=== PATIENT | female | born 1950 | race Caucasian/White ===

== ENCOUNTER 2023-04-12 09:51 | Emergency (ER) | payer MEDICARE, SELFPAY ==
[2023-04-12 09:53] VITALS: BP 153/77; PULSE 77; RESP 16; TEMP 36.4; O2SAT 98
[2023-04-12 11:05] LABS: Strep Group A RT-PCR NOT DETECTED (Negative)
--- NOTE | 2023-04-12 11:23 | ED.GENADULT ---
HPI - General Adult General Chief complaint: Upper Respiratory Infection Stated complaint: throat feels closing, chest is cutting Time Seen by Provider: 04/12/23 10:15 History of Present Illness HPI narrative: 72-year-old female presented the ED for evaluation of sore throat. Patient states that the symptoms started yesterday. Patient does report some increased difficulty swallowing and does have some epigastric pain. Patient is not on an inhaled steroid, is not diabetic, takes no immunosuppressive medications and has no prior history of thrush Related Data Allergies Allergy/AdvReac Type Severity Reaction Status Date / Time azithromycin Allergy Severe RASH Verified 04/12/23 10:00 Penicillins Allergy Intermediate Rash Verified 04/12/23 10:00 Review of Systems Review of Systems: All systems reviewed & are unremarkable except as noted in HPI and below Exam Narrative: PPEARANCE: Well appearing, no pain, no distress, well-nourished. HEAD: normocephalic, atraumatic. EYES: PERRLA/EOMI, conjunctivae clear. NOSE: Normal no drainage EARS:TMS clear with good light reflex. THROAT: White plaques on soft and hard palate and tongue consistent with thrush, mild erythema of the posterior pharynx NECK: Supple. No adenopathy, no masses. RESPIRATORY: Airway patent, respirations nonlabored. Clear to auscultation bilaterally, no rales, rhonchi, wheezing. CARDIOVASCULAR: Regular rate and rhythm without murmurs rubs or gallops. ABDOMINAL: Soft, nontender, nondistended, normal bowel sounds MUSCULOSKELETAL: Moves all extremities. Strength/ROM intact, No edema, No calf tenderness. NEURO: Alert. Cranial nerves II through XII intact. Good gait. Good coordination SKIN: Warm, dry. Normal Color PSYCHIATRIC: Normal affect/mood. Course Course Emergency Course: 72-year-old female presented ED for evaluation of sore throat. Exam was consistent with thrush and patient strep was negative. Patient will be treated with oral nystatin. Patient family were updated on the results of the work-up and patient was encouraged of close follow-up with her primary care physician. Vital Signs Vital signs: Vital Signs Temperature 97.6 F 04/12/23 09:53 Pulse Rate 77 04/12/23 09:53 Respiratory Rate 16 04/12/23 09:53 Blood Pressure 153/77 H 04/12/23 09:53 Pulse Oximetry 98 04/12/23 09:53 Oxygen Delivery Room Air 04/12/23 09:53 Temperature 97.6 F 04/12/23 09:53 Pulse Rate 77 04/12/23 09:53 Respiratory Rate 16 04/12/23 09:53 Blood Pressure 153/77 H 04/12/23 09:53 Pulse Oximetry 98 04/12/23 09:53 Oxygen Delivery Room Air 04/12/23 09:53 Medical Decision Making Vital Signs Vital Signs: Vital Signs Temperature 97.6 F 04/12/23 09:53 Pulse Rate 77 04/12/23 09:53 Respiratory Rate 16 04/12/23 09:53 Blood Pressure 153/77 H 04/12/23 09:53 Pulse Oximetry 98 04/12/23 09:53 Oxygen Delivery Room Air 04/12/23 09:53 Temperature 97.6 F 04/12/23 09:53 Pulse Rate 77 04/12/23 09:53 Respiratory Rate 16 04/12/23 09:53 Blood Pressure 153/77 H 04/12/23 09:53 Pulse Oximetry 98 04/12/23 09:53 Oxygen Delivery Room Air 04/12/23 09:53 Lab Data Labs: Lab Results 04/12/23 Range/Units 10:28 Group A Strep (PCR) Not detected (Negative) Discharge Plan Discharge Clinical Impression: Thrush of mouth and esophagus Patient Disposition: Home, Self-Care Condition: Stable Instructions: Antibiotic Form, Oral Candidiasis (ED) Additional Instructions: Oral nystatin as directed. Have close follow-up with your primary care physician for reevaluation. If you have any worsening symptoms then please call or return to the emergency department. Prescriptions: New nystatin 100,000 unit/mL suspension 100,000 unit PO QID 7 Days Qty: 28 0RF Rx Instructions: swish and swallow Follow-up/Referrals: Reema,DONAVAN De Los Santos [Primary Care Provider] -
[2023-04-12] MEDS: NYSTATIN 100,000 UNITS/ML SUSP 5 ML ORAL.SUSP PO (11:33)
== END 2023-04-12 11:39 | disposition home or self-care (01) ==
PROVIDERS: Emergency Provider Emergency Medicine; PCP Nurse Practitioner Family
DX: B37.81 Candidal esophagitis (principal); B37.0 Candidal stomatitis
CPT/HCPCS: 87651; 99283; A9270

== ENCOUNTER 2025-09-10 09:42 | Emergency (ER) | payer MEDICARE, SELFPAY ==
--- OUTSIDE RECORDS SUMMARY | 2025-09-10 09:44 | XMS_ITS | Clinical Summary ---
Author Organization [facility] Address [address], [address] [address] Phone Care Team Providers Care Loan And Credit Manager Name Role Phone Reema, Magali Carlin APRN, CHITRA Primary Care Provider Allergies Active Allergy Reactions Criticality Noted Date Comments Azithromycin Rash 02/14/2017 Penicillins Rash,Swelling 02/14/2017 Medications hydroCHLOROthiaz ruben 25 MG Tablet Take 25 mg by mouth daily. Active metoprolol tartrate (LOPRESSOR) 25 MG Tablet Take 25 mg by mouth 2 times daily. Active venlafaxine (EFFEXOR-XR) 150 MG CAPSULE SR 24 HR Take 150 mg by mouth daily. Active aspirin 81 MG Chewable Tablet Take 81 mg by mouth daily. Active simvastatin (ZOCOR) 40 MG Tablet Take 40 mg by mouth every evening. Active omeprazole (PRILOSEC) 20 MG CAPSULE DELAYED RELEASE Take 20 mg by mouth 2 times daily. Active QUEtiapine (SEROquel) 100 MG Tablet Take by mouth nightly. Active Active Problems Problem Noted Date Diagnosed Date Complex tear of medial menis cus of left knee as current injury 05/09/2017 Family History Medical History Relation Name Comments Heart Attack Father Relation Name Status Comments Father Mother Social History Tobacco Use Types Packs/Day Years Used Date Smoking Tobacco: Never Smokeless Tobacco: Never Alcohol Use Standard Drinks/Week Comments No 0 (1 standard drink = 0.6 oz pur e alcohol) Comments No Sex and Gender Information Value Date Recorded Sex Assigned at Not on file Legal Sex Female 10:52 PM CDT Gender Identity Not on file Sexual Orientation Not on file Last Filed Vital Signs Vital Sign Reading Time Taken Comments Blood Pressure 169/61 04/13/2023 12:13 PM CDT Pulse 72 04/13/2023 12:13 PM CDT Temperature 36.8 C (98.2 F) 04/13/2023 12:13 PM CDT Respiratory Rate 16 04/13/2023 12:13 PM CDT Oxygen Saturation 97% 04/13/2023 12:13 PM CDT Inhaled Oxygen Concentration - - Weight 75.8 kg (167 lb) 05/14/2024 10:53 AM CDT Height 167.6 cm (5' 6) 05/14/2024 10:53 AM CDT Body Mass Index 26.95 05/14/2024 10:53 AM CDT Plan of Treatment Health Maintenance Due Date Last Done Comments DEXA Bone Density 1950 Hepatitis C Virus (HCV) Screening 1950 TdaP Immunization 1950 Cologuard 1995 Colonoscopy 1995 Colorectal Cancer Screening 1995 Immunochemical Fecal Occult Blood 1995 Zoster Immunization (1 of 2) 2000 Medicare Initial AWV [id number] 02/20/2010 Pneumococcal Immunization (50+ years) (2 of 2 - PCV20 or PCV21) 03/24/2019 03/24/2018 Influenza Immunization (#1) 2025 09/0 02/2024, 08/06/2023, 07/06/2022, Additional history exists SARS-COV-2 Immunization (2024- season) 2025 11/26/2021, 05/22/2021, 05/02/2021 Respiratory Syncytial Virus (RSV) Immunization (Adult) (1 - 1-dose 75+ series) 2025 Pneumococcal Immunization Combined Discontinued 03/24/2018 Mammogram Discontinued 12/02/2023, 12/19/2020 Hepatitis B Immunization Aged Out No longer eligible based on patient's age to complete this topic Human Papillomavirus (HPV) Immunization (No Doses Required) Completed Meningococcal Immunization (ACWY) Aged Out No longer eligible based on patient's age to complete this topic Rotavirus Immunization Aged Out No lo nger eligible based on patient's age to complete this topic Procedures Procedure Name Priority Date/Time Associated Diagnosis Comments OTTO SCREENING BILATERAL DIGITAL W CAD W MARIA ELENA Routine 12/02/2023 2:47 PM CDT Visit for screening mammogram from Last 3 Months or Most Recently Relevant to Health Maintenance Results * OTTO SCREENING BILATERAL DIGITAL W CAD W MARIA ELENA (12/02/2023 2:47 PM CDT) Anatomical Region Laterality Modality breast Bilateral Mammography 12/02/2023 2:47 PM CDT Narrative 12/03/2023 8:21 AM CDT - OTTO SCREENING BILATERAL DIGITAL W CAD W MARIA ELENA BILATERAL DIGITAL SCREENING MAMMOGRAM 3D/2D WITH CAD WITH MEDIOLATERAL OBLIQUE CRANIOCAUDAL: 12/02/2023 The study was acquired using digital technology and interpreted from soft copy. Current study was also evaluated with EyesquadD version 7.2. 2D digital mammographic views, as well as 3D digital tomosynthesis were performed in the CC and MLO projections. CLINICAL: Routine screening. Patient has no complaints. Possible 30 pound weight loss since last mammogram. No personal history of cancer. No family history of breast cancer. COMPARISONS: Comparison is made to exams dated: 12/19/2020, 08/23/2011 [facility], and 07/22/2009 [facility]. BREAST TISSUE:There are scattered fibroglandular densities in both breasts. FINDINGS: No significant masses, calcifications, or other findings are seen in either breast. There has been no significant interval change. IMPRESSION: BI-RAD 1 NEGATIVE There is no mammographic evidence of malignancy. A 1 year screening mammogram is recommended. A letter will be sent to the patient with these results. The patient will be entered into a reminder system with a target due date of 1 year for her next screening exam. Electronically signed by: Chichi looney/rosa:12/02/2023 16:37:54 Printed Circuit Board Designer(s): RT Alejandra(R)(M), [facility] letter sent: Normal Exam Reading location: [facility] BI-RADS: 1 Negative Procedure Note Chichi Pandya MD - 12/03/2023 - OTTO SCREENING BILATERAL DIGITAL W CAD W MARIA ELENA BILATERAL DIGITAL SCREENING MAMMOGRAM 3D/2D WITH CAD WITH MEDIOLATERAL OBLIQUE CRANIOCAUDAL: 12/02/2023 The study was acquired using digital technology and interpreted from soft copy. Current study was also evaluated with ICAD version 7.2. 2D digital mammographic views, as well as 3D digital tomosynthesis were performed in the CC and MLO projections. CLINICAL: Routine screening. Patient has no complaints. Possible 30 pound weight loss since last mammogram. No personal history of cancer. No family history of breast cancer. COMPARISONS: Comparison is made to exams dated: 12/19/2020, 08/23/2011 [facility], and 07/22/2009 [facility]. BREAST TISSUE:There are scattered fibroglandular densities in both breasts. FINDINGS: No significant masses, calcifications, or other findings are seen in either breast. There has been no significant interval change. IMPRESSION: BI-RAD 1 NEGATIVE There is no mammographic evidence of malignancy. A 1 year screening mammogram is recommended. A letter will be sent to the patient with these results. The patient will be entered into a reminder system with a target due date of 1 year for her next screening exam. Electronically signed by: Chichi looney/rosa:12/02/2023 16:37:54 Printed Circuit Board Designer(s): RT Alejandra(R)(M), [facility] letter sent: Normal Exam Reading location: [facility] BI-RADS: 1 Negative Magali Benavidez DROP WIRE ALIGNER, STATISTICAL ENGINEER IMG MAMMO ORDERABLES F inal Result from Last 3 Months or Most Recently Relevant to Health Maintenance Insurance MEDICARE C [facility] [place] [id number] Care Teams Loan And Credit Manager Relationship Specialty Start Date End Date Magali Benavidez APRN, STATISTICAL ENGINEER [address] [place] [address] PCP - General Advanced Practice Nurse 07/17/20
--- OUTSIDE RECORDS SUMMARY | 2025-09-10 09:44 | XMS_ITS | Data Portability ---
Author Organization [facility] DIANNAOdilon Address [address] [place] [address] Care Team Providers Care Driver/Guide Name Role Phone MAGALI TAVERA Primary Care Provider [phone] Assessment Encounter Date Assessment Date Assessment LastModified by Organization Details LastModified Time 02/04/2024 02/04/2024 Ms. Swift presented in office today for follow up appointment. Patient reports episodes of feeling off balance. Patient also reports bilateral decreased hearing Not available 02/12/2024 08:52:45 03/08/2024 03/08/2024 Ms. Swift presented in office today for follow up appointment. Not available 03/08/2024 16:28:48 09/07/2024 09/07/2024 Ms. Swift is here for a follow-up, reporting no new symptoms or concerns. No changes in health since the last visit. Not available 09/23/2024 00:18:24 01/11/2025 01/11/2025 Ms. Swift is here for a follow-up, reporting constipation x 2 weeks. Patient also requesting refill on Epi pen. Not available 01/14/2025 09:58:12 03/15/2025 03/15/2025 Ms. Swift present for follow up appointment and Medicare wellness exam. Not available 03/28/2025 09:05:22 Plan of Treatment Reminders Order Date Submit Date Provider Last Modified By Organization Details Last Modified Time Details Appointments ANY 15 2025 02:45P M MAGALI TAVERA NP Not available Not available Not available Lab noninvas calos colorect al cancer DNA + occult blood screenin g, QL, stool 2023 024 [facility], [address], [address], [place], [address], 04/07/2024 15:46:50 CMP, serum or plasma 2023 024 [facility], [address] [place] [address] 2, [place], [address], 02/05/2024 10:37:07 CBC w/ auto diff 2023 024 [facility], [address] [facility], [facility] 2, [place], [address], 02/05/2024 10:37:09 Referral audiolog ist referral 2023 024 [email or web address], [address] [place] [address] [address], [place], [address], 05/25/2024 12:23:08 Procedures None recorded . Surgeries None recorded . Imaging DEXA 2023 024 [email or web address], [address] [place], [address], 02/22/2025 14:33:57 Medication Orders EpiPen 2-Landon 0.3 mg/0.3 mL injectio n, auto-inj sandie 2024 025 [facility] [address] [place], [address], 01/11/2025 14:43:16 omeprazo le 20 mg capsule, delayed release 2023 024 [facility] [address] [place], [address], 09/07/2024 16:08:05 meclizin e 12.5 mg tablet 2023 024 [facility] [address] [place], [address], 02/04/2024 15:29:14 Patient TargetsNo targets recorded. Patient Instructions Encounter Date Encounter Id Patient Instructions Last Modified By Organization Details Last Modified Time 02/04/2024 [id number] vertigo: care instructions Not available 02/04/2024 15:30:32 A healthy lifestyle: care instructions Not available 02/12/2024 08:57:07 - Always present to ER or Urgent Care with any progression of/alarming symptoms, significant changes in symptoms or any concerning or urgent matters Not available 02/12/2024 08:50:38 03/08/2024 [id number] advance care planning: care instructions Not available 03/08/2024 15:20:35 preventing falls : care instructions Not available 03/08/2024 15:20:35 Medicare [facility] Prevent[facility] Check[facility] Not available 03/08/2024 15:20:35 eating healthy foods: care instructions Not available 03/08/2024 15:20:35 AD8 Dementia Screening Interview Not available 03/08/2024 15:20:35 - Always present to ER or Urgent Care with any progression of/alarming symptoms, significant changes in symptoms or any concerning or urgent matters Not available 03/08/2024 15:18:34 09/07/2024 [id number] - Always present to ER or Urgent Care with any progression of/alarming symptoms, significant changes in symptoms or any concerning or urgent matters Not available 09/23/2024 00:22:27 01/11/2025 [id number] A healthy lifestyle: care instructions Not available 01/11/2025 14:43:04 - Always present to ER or Urgent Care with any progression of/alarming symptoms, significant changes in symptoms or any concerning or urgent matters Not available 01/11/2025 14:44:11 03/15/2025 [id number] advance care planning: care instructions Not available 03/15/2025 14:55:40 preventing falls : care instructions Not available 03/15/2025 14:55:40 Quitting Tobacco : Care Instructions Not available 03/15/2025 14:55:40 Medicare [facility] Preventive Checklist Not available 03/15/2025 14:55:40 eating healthy foods: care instructions Not available 03/15/2025 14:55:40 AD8 Dementia Screening Interview Not available 03/15/2025 14:55:40 - Always present to ER or Urgent Care with any progression of/alarming symptoms, significant changes in symptoms or any concerning or urgent matters Not available 03/15/2025 14:39:03 Reason for Referral [employer] Referral for Hea ring loss Referring Physician: Magali Tavera, Family Medicine, Encounter Date: 02/04/2024 Results Created Date Observation Date Name Description Value Unit Range Abnormal Flag Note LastModifiedBy Organization Detail LastModifiedTime 03/08/2003/08/2025 COLOG UARD cologuard result Cancel led - Order d not applic able Not Available [facility] [address], [place], [address], 03/08/2025 04:27:15 02/04/20 24 02/05/2024 COMP. METAB OLIC PANEL (14) glucose 117 mg/dL 70-99 above high normal Not Available [facility] ([facility]) [address] [place], [address], 02/05/2024 10:37:07 02/04/20 24 02/05/2024 COMP. METAB OLIC PANEL (14) BUN 17 mg/dL 8-27 Not Available [facility] ([facility]) [address] [place], [address], 02/05/2024 10:37:07 02/04/20 24 02/05/2024 COMP. METAB OLIC PANEL (14) creatinine 0.90 mg/dL 0.57-1 .00 Not Available [facility] ([facility]) [address] [place], [address], 02/05/2024 10:37:07 02/04/20 24 02/05/2024 COMP. METAB OLIC PANEL (14) eGFR 68 mL/mi n/1.7 3 >59 Not Available [facility] ([facility]) [address] [facility], [place], [address], 02/05/2024 10:37:07 02/04/20 24 02/05/2024 COMP. METAB OLIC PANEL (14) BUN/creatini ne ratio 19 12-28 Not Available [facility] ([facility]) [address] [facility], [place], [address], 02/05/2024 10:37:07 02/04/20 24 02/05/2024 COMP. METAB OLIC PANEL (14) sodium 138 mmol/ L 134-14 4 Not Available [facility] ([facility]) [address] [facility], [place], [address], 02/05/2024 10:37:07 02/04/20 24 02/05/2024 COMP. METAB OLIC PANEL (14) potassium 3.7 mmol/ L 3.5-5. 2 Not Available [facility] ([facility]) [address] [facility], [place], [address], 02/05/2024 10:37:07 02/04/20 24 02/05/2024 COMP. METAB OLIC PANEL (14) chloride 98 mmol/ L 96-106 Not Available [facility] ([facility]) [address] [facility], [place], [address], 02/05/2024 10:37:07 02/04/20 24 02/05/2024 COMP. METAB OLIC PANEL (14) carbon dioxide, total 25 mmol/ L 20-29 Not Available [facility] ([facility]) [address] [facility], [place], [address], 02/05/2024 10:37:07 02/04/20 24 02/05/2024 COMP. METAB OLIC PANEL (14) calcium 9.9 mg/dL 8.7-10 .3 Not Available [facility] ([facility]) [address], [place], [address], 02/05/2024 10:37:07 02/04/20 24 02/05/2024 COMP. METAB OLIC PANEL (14) protein, total 6.8 g/dL 6.0-8. 5 Not Available [facility] ([facility]) [address], [place], [address], 02/05/2024 10:37:07 02/04/20 24 02/05/2024 COMP. METAB OLIC PANEL (14) albumin 4.1 g/dL 3.8-4. 8 Not Available [facility] ([facility]) [address], [place], [address], 02/05/2024 10:37:07 02/04/20 24 02/05/2024 COMP. METAB OLIC PANEL (14) globulin, total 2.7 g/dL 1.5-4. 5 Not Available [facility] ([facility]) [address], [place], [address], 02/05/2024 10:37:07 02/04/20 24 02/05/2024 COMP. METAB OLIC PANEL (14) A/G ratio 1.5 1.2-2. 2 Not Available [facility] ([facility]) [address] [place], [address], 02/05/2024 10:37:07 02/04/20 24 02/05/2024 COMP. METAB OLIC PANEL (14) bilirubin, total 0.3 mg/dL 0.0-1. 2 Not Available [facility] ([facility]) [address] [place], [address], 02/05/2024 10:37:07 02/04/20 24 02/05/2024 COMP. METAB OLIC PANEL (14) alkaline phosphatase 103 IU/L 44-121 Not Available [facility]) [address], [place], [address], 02/05/2024 10:37:07 02/04/20 24 02/05/2024 COMP. METAB OLIC PANEL (14) AST (SGOT) 38 IU/L 0-40 Not Available [facility] ([facility]) [address] [facility] [place], [address], 02/05/2024 10:37:07 02/04/20 24 02/05/2024 COMP. METAB OLIC PANEL (14) ALT (SGPT) 28 IU/L 0-32 Not Available [facility] ([facility]) [address] [facility], [place], [address], 02/05/2024 10:37:07 02/04/20 24 02/05/2024 CBC WITH DIFFE RENTI AL/PL ATELE T WBC 8.8 x10e3 /uL 3.4-10 .8 Not Available [facility] ([facility]) [address] [facility], [place], [address], 02/05/2024 10:37:08 02/04/20 24 02/05/2024 CBC WITH DIFFE RENTI AL/PL ATELE T RBC 4.25 x10e6 /uL 3.77-5 .28 Not Available [facility] ([facility]) [address] [facility] [place], [address], 02/05/2024 10:37:08 02/04/20 24 02/05/2024 CBC WITH DIFFE RENTI AL/PL ATELE T hemoglobin 11.6 g/dL 11.1-1 5.9 Not Available [facility] ([facility]) [address] [facility] [place], [address], 02/05/2024 10:37:08 02/04/20 24 02/05/2024 CBC WITH DIFFE RENTI AL/PL ATELE T hematocrit 34.8 % 34.0-4 6.6 Not Available [facility] ([facility]) [address] [facility] [place], [address], 02/05/2024 10:37:08 02/04/20 24 02/05/2024 CBC WITH DIFFE RENTI AL/PL ATELE T MCV 82 fL 79-97 Not Available [facility] ([facility]) [address] [facility], [place], [address], 02/05/2024 10:37:08 02/04/20 24 02/05/2024 CBC WITH DIFFE RENTI AL/PL ATELE T MCH 27.3 pg 26.6-3 3.0 Not Available [facility] ([facility]) [address] [facility], [place], [address], 02/05/2024 10:37:08 02/04/20 24 02/05/2024 CBC WITH DIFFE RENTI AL/PL ATELE T MCHC 33.3 g/dL 31.5-3 5.7 Not Available [facility] ([facility]) [address] [facility], [place], [address], 02/05/2024 10:37:08 02/04/20 24 02/05/2024 CBC WITH DIFFE RENTI AL/PL ATELE T RDW 13.0 % 11.7-1 5.4 Not Available [facility] ([facility]) [address] [facility], [place], [address], 02/05/2024 10:37:08 02/04/20 24 02/05/2024 CBC WITH DIFFE RENTI AL/PL ATELE T platelets 269 x10e3 /uL 150-45 0 Not Available [facility] ([facility]) [address] [facility], [place], [address], 02/05/2024 10:37:08 02/04/20 24 02/05/2024 CBC WITH DIFFE RENTI AL/PL ATELE T neutrophils 61 % notest ab. Not Available [facility] ([facility]) [address] [facility], [place], [address], 02/05/2024 10:37:08 02/04/20 24 02/05/2024 CBC WITH DIFFE RENTI AL/PL ATELE T lymphs 26 % notest ab. Not Available [facility] ([facility]) [address] [facility], [place], [address], 02/05/2024 10:37:08 02/04/20 24 02/05/2024 CBC WITH DIFFE RENTI AL/PL ATELE T monocytes 9 % notest ab. Not Available [facility] ([facility]) [address] [facility], [place], [address], 02/05/2024 10:37:08 02/04/20 24 02/05/2024 CBC WITH DIFFE RENTI AL/PL ATELE T eos 2 % notest ab. Not Available [facility] ([facility]) [address] [facility], [place], [address], 02/05/2024 10:37:08 02/04/20 24 02/05/2024 CBC WITH DIFFE RENTI AL/PL ATELE T basos 1 % notest ab. Not Available [facility] ([facility]) [address] [facility], [place], [address], 02/05/2024 10:37:08 02/04/20 24 02/05/2024 CBC WITH DIFFE RENTI AL/PL ATELE T neutrophils (absolute) 5.3 x10e3 /uL 1.4-7. 0 Not Available [facility] ([facility]) [address] [facility], [place], [address], 02/05/2024 10:37:08 02/04/20 24 02/05/2024 CBC WITH DIFFE RENTI AL/PL ATELE T lymphs (absolute) 2.3 x10e3 /uL 0.7-3. 1 Not Available [facility] ([facility]) [address] [facility], [place], [address], 02/05/2024 10:37:08 02/04/20 24 02/05/2024 CBC WITH DIFFE RENTI AL/PL ATELE T monocytes(ab solute) 0.8 x10e3 /uL 0.1-0. 9 Not Available [facility] ([facility]) [address] [facility], [place], [address], 02/05/2024 10:37:08 02/04/20 24 02/05/2024 CBC WITH DIFFE RENTI AL/PL ATELE T eos (absolute) 0.2 x10e3 /uL 0.0-0. 4 Not Available [facility] ([facility]) [address] [facility], [place], [address], 02/05/2024 10:37:08 02/04/20 24 02/05/2024 CBC WITH DIFFE RENTI AL/PL ATELE T baso (absolute) 0.1 x10e3 /uL 0.0-0. 2 Not Available [facility] ([facility]) [address] [facility], [place], [address], 02/05/2024 10:37:08 02/04/20 24 02/05/2024 CBC WITH DIFFE RENTI AL/PL ATELE T immature granulocytes 1 % notest ab. Not Available [facility] ([facility]) [address] [facility], [place], [address], 02/05/2024 10:37:08 02/04/20 24 02/05/2024 CBC WITH DIFFE RENTI AL/PL ATELE T immature grans (abs) 0.0 x10e3 /uL 0.0-0. 1 Not Available [facility] ([facility]) [address] [facility], [place], [address], 02/05/2024 10:37:08 Result Notes None recorded. Problems Name Problem SNOMED Code Status Onset Date Resolution Date Notes Provider Name and Address Organization Details Recorded Time Chest discomfor t 670607685 Active Not Available [facility] 4 06:42:53 Obesity 752796301 Active Not Available [facility] 4 06:42:54 Hypertens calos disorder 41897975 Active Not Available [facility] 4 06:42:53 Chronic obstructi ve pulmonary disease 21576833 Active Not Available [facility] 4 06:42:53 Gastroeso phageal reflux disease 194253923 Active Not Available [facility] 4 06:42:53 Mixed anxiety and depressiv e disorder 768094830 Active Dr Schwartz Not Available [facility] 4 06:42:53 Hyperlipi demia 08538371 Active Not Available [facility] 4 06:42:54 Acute sinusitis 81243534 Completed 08/27/2018 Natalia Haley PA-C Attn: Accounting ,[address] [place], [place], [address] [place] [address] , [place] [facility] 8 17:35:15 Acute exacerbat ion of chronic obstructi ve pulmonary disease 653851172 Completed 08/27/2018 Natalia Haley PA-C Attn: Accounting ,[address] [place], [place], [address] [place] [address] , [place] [facility] 8 17:35:23 Diastolic dysfuncti on 6548174 Active Not Available [facility] 4 06:42:53 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 Not Available [facility] 4 06:42:53 Bacterial conjuncti vitis 824088840 Completed 08/27/2018 Natalia Haley PA-C Attn: Accounting ,[address] [place], [place], [address] [place] [address] , [place] [facility] 8 17:35:10 Eruption 400085713 Active Not Available [facility] 4 06:42:53 Allergy to bee venom 320981590 Active Not Available [facility] 4 06:42:54 Osteoarth ritis 635128315 Active 2016 Not Available [facility] 4 06:42:53 Persisten t insomnia 391914557 Active 2017 Not Available [facility] 4 06:42:53 Foot pain 48675907 Active 2018 Not Available [facility] 4 06:42:54 Vitamin D deficienc y 31505386 Active 2018 Not Available [facility] 4 06:42:53 Body mass index 30+ - obesity 392762732 Active 2021 Not Available [facility] 4 06:42:53 Pain in finger of left hand 70192347491 9105 Active 2022 Not Available [facility] 4 06:42:53 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 96989485657 22471 Active 2022 Not Available [facility] 4 06:42:53 Candidias is of mouth 54587564 Active 2022 Not Available [facility] 4 06:42:54 Hypokalem ia 25819686 Active 2022 Not Available [facility] 4 06:42:54 Vertigo 230233465 Active 2023 MAGALI TAVERA NP Attn: Accounting ,[address] [place], [address] , [facility] 4 08:57:03 Overweigh t 661760373 Active 2023 MAGALI TAVERA NP Attn: Accounting ,[address] [place], [address] , [facility] - [facility] 4 08:57:06 [place]os[place] py declined 82944572241 9100 Active 2024 MAGALI TAVERA NP Attn: Accounting ,[address] [place], [address] , [place] [facility] 5 00:22:42 Notes:02/14/17 [facility] HTN, left knee pain and UTI Some problems listed in Documents: #[id number], #[id number], #[id number], #[id number] could not be added to this patient's chart. Please review these documents and add these problems to the patient's chart manually as needed. Problem Notes None recorded. Procedures Surgical History Date Name Laterality Status Provider Name and Address Organization Details Recorded Time 05/10/20 17 Knee Surgery completed Jacquelin Vegas LPN [place] - [facility] 05/23/2017 14:05:01 Back Surgery completed [facility] 08/25/2014 15:59:51 Cholecystectomy completed [facility] 08/25/2014 15:59:51 Tonsillectomy completed [facility] 08/25/2014 15:59:51 Tubal Ligation completed [facility] 08/25/2014 15:59:51 Imaging Results None recorded. Procedure Notes None recorded. Medical Equipment None Reported. Allergies Allergen ID Allergen Name Allergen Category Reaction Reaction Severity Criticality Documentation Date Start Date Code Code System Note Provider Name and Address Organization Details Recorded Time 333091 Pneumococ gautam vaccine Not available rash severe Not available 04/02/2018 98467 7 RxNorm [place] - [place] 8 11:46:02 5630 Product containin g penicilli n (product) medicatio n rash swelling Not available Not available Not available 08/25/20142016 79364 8001 SNOMED MAGALI TAVERA NP Attn: Accountin g,[address] [place], [address], [facility] - [facility] 5 14:27:06 5631 azithromy sammie medicatio n rash Not available Not available 08/25/20142016 47760 RxNorm MAGALI TAVERA HVAC DESIGN ENGINEER Attn: Accountin g,[address] [place], [address], [facility] - [facility] 5 14:27:02 02678 Cipro medicatio n hives moderate Not available 02/21/201732596 3 RxNorm Sissy gabriel, [place] - [facility] 7 14:51:56 Medications Name Sig Start Date Stop Date Status Note LastModified by Organization Details LastModified Time quetiapin e fumarate 100 mg tabs 03/29 completed Not Available Not Available Not Available venlafaxi ne hcl er 150 mg cp24 03/29 completed Not Available Not Available Not Available Prescript ion - Prior Authoriza tion Request 07/10 completed Not Available Not Available Not Available omeprazol e 20 mg cpdr 03/29 completed Not Available Not Available Not Available metoprolo l tartrate 25 mg tabs 03/29 completed Not Available Not Available Not Available gabapenti n 300 mg caps 03/29 completed Not Available Not Available Not Available terbinafi ne HCl 1 % topical cream APPLY TO THE AFFECTED AND SURROUND ING AREAS OF SKIN BY TOPICAL ROUTE ONCE DAILY 04/01 completed Not Available Not Available Not Available Lopressor 50 mg tablet TAKE 0.5 TABLET (25 MG) BY ORAL ROUTE 2 TIMES PER DAY WITH MEALS 2014 active Started by cardiolo gist Not Available Not Available Not Available atorvasta tin 80 mg tablet TAKE 1 TABLET BY MOUTH ONCE DAILY IN THE EVENING 2024 active Not Available Not Available Not Avai lable nystatin 100,000 unit/mL oral suspensio n TAKE 5 ML BY MOUTH 4 TIMES DAILY FOR 14 DAYS 08/06 completed Not Available Not Available Not Available prednison e 10 mg tablet 03/24 completed Not Available Not Available Not Available ibuprofen 800 mg tablet active Not Available Not Available Not Available hydrocodo ne 5 mg-acetam inophen 325 mg tablet TAKE 1 TABLET BY MOUTH EVERY 6 HOURS active Not Available Not Available No t Available Diphenhyd ramine HCl (Sleep) 25 mg tablet Take 2 tablets every day by oral route at bedtime. 10/15 completed Not Available Not Available Not Available prednison e 20 mg tablet TAKE 1 TABLET BY MOUTH ONCE DAILY FOR 5 DAYS 02/04 completed Not Available Not Available Not Available quetiapin e 200 mg tablet active Not Available Not Available Not Available clobetaso l 0.05 % topical cream APPLY A THIN LAYER TO RASH AREA(S) TWICE DAILY FOR UP TO 4 WEEKS, THEN TAKE A TWO WEEK BREAK. ONCE RESOLVED , THEN USE TWICE WEEKLY FOR 6 MONTHS active Not Available Not Available No t Available venlafaxi ne ER 150 mg capsule,e xtended release 24 hr Take 1 capsule by mouth once daily in the morning 2024 active Not Available Not Available Not Avai lable meclizine 12.5 mg tablet TAKE 2 TABLETS BY MOUTH THREE TIMES DAILY FOR 10 DAYS active Not Available Not Available No t Available potassium chloride ER 10 mEq tablet,ex tended release TAKE 1 TABLET BY MOUTH ONCE DAILY FOR 30 DAYS 02/03 completed Not Available Not Available Not Available Tamiflu 75 mg capsule Take 1 capsule twice a day by oral route for 10 days. 03/24 completed Not Available Not Available Not Available aspirin 81 mg tablet,de layed release Take 1 tablet every day by oral route. 02/04 completed Not Available Not Available Not Available tramadol 50 mg tablet Take 1 tablet 3 times a day by oral route. 04/01 completed Not Available Not Available Not Available quetiapin e 100 mg tablet TAKE 1 TABLET BY MOUTH ONCE DAILY AT BEDTIME 2024 active Not Available Not Available Not Avai lable simvastat in 40 mg tablet TAKE 1 TABLET BY MOUTH ONCE DAILY AT BEDTIME FOR 90 DAYS active Not Available Not Available No t Available pravastat in 80 mg tablet TAKE 1 TABLET BY MOUTH IN THE EVENING 04/14 completed Changed to lipitor Not Available Not Available Not Available ciproflox acin 0.3 % eye drops INSTILL 1 DROP INTO THE AFFECTED EYE(S) EVERY 4 HOURS FOR 7 DAYS 07/10 completed Not Available Not Available Not Available benzonata te 100 mg capsule TAKE 1 CAPSULE BY MOUTH EVERY 8 HOURS NEEDED 02/04 completed Not Available Not Available Not Available hydrocort isone 1 % topical cream Every 4 hrs for 30 days 10/15 completed Not Available Not Available Not Available hydrocodo ne 7.5 mg-acetam inophen 325 mg tablet 03/24 completed Not Available Not Available Not Available polymyxin B sulfate 10,000 unit-trim ethoprim 1 mg/mL eye drops INSTILL 1 DROP INTO AFFECTED EYE BY OPHTHALM IC ROUTE EVERY 6 HOURS X 7 DAYS 03/24 completed Not Available Not Available Not Available gabapenti n 300 mg capsule TAKE 1 CAPSULE BY MOUTH THREE TIMES DAILY 2024 active Not Available Not Available Not Avai lable omeprazol e 20 mg capsule,d elayed release Take 1 capsule by mouth twice daily 2024 active Not Available Not Available Not Avai lable hydrochlo rothiazid e 25 mg tablet Take 1 tablet by mouth once daily 2024 active Not Available Not Available Not Avai lable ergocalci ferol (vitamin D2) 1,250 mcg (50,000 unit) capsule Take 1 capsule every week by oral route as directed for 60 days. 01/30 completed Not Available Not Available Not Available epinephri ne 0.3 mg/0.3 mL injection , auto-inje ctor INJECT CONTENTS OF 1 PEN NEEDED FOR ALLERGIC REACTION FOR BEE STINGS AND GO TO ER active Not Available Not Available No t Available albuterol sulfate HFA 90 mcg/actua tion aerosol inhaler INHALE 2 PUFFS BY MOUTH EVERY 4 TO 6 HOURS NEEDED active Not Available Not Available No t Available neomycin 3.5 mg-polymy hailey 10,000 unit-hydr ocort 10 mg/mL eye drop,susp INSTILL 1 DROP INTO AFFECTED EYE(S) BY OPHTHALM IC ROUTE EVERY 4 HOURS 2014 active Not Available Not Available Not Avai lable fluticaso ne propionat e 50 mcg/actua tion nasal spray,[employer] [place] 1 spray every day by intranas al route. 02/26 completed Not Available Not Available Not Available naproxen 500 mg tablet TAKE 1 TABLET BY MOUTH TWICE DAILY NEEDED FOR MILD OR MORE SEVERE PAIN FOR UP TO 5 DAYS. active Not Available Not Available No t Available neomycin- polymyxin -hydrocor t 3.5 mg-10,000 unit/mL-1 % ear drops,fabian p INSTILL 4 DROPS INTO AFFECTED EAR(S) BY OTIC ROUTE 3 TIMES PER DAY x 7 days 02/12 completed Not Available Not Available Not Available Bactrim DS 800 mg-160 mg tablet Take 1 tablet every 12 hours by oral route for 10 days. 09/04 completed Not Available Not Available Not Available metoprolo l tartrate 25 mg tablet Take 1 tablet by mouth twice daily 2024 active Not Available Not Available Not Avai lable pregabali n 50 mg capsule TAKE 1 CAPSULE BY MOUTH TWICE A DAY 11/28 completed Not Available Not Available Not Available Lyrica 75 mg capsule TAKE 1 CAPSULE BY MOUTH TWICE A DAY 10/21 completed Not Available Not Available Not Available Lyrica 100 mg capsule Take 1 capsule 3 times a day by oral route for 90 days. 11/28 completed Not Available Not Available Not Available quetiapin e ER 150 mg tablet,ex tended release 24 hr Take 1 tablet every day by oral route. active Not Available Not Available No t Available Afluria Quad 4429-7961 60 mcg/0.5 mL intramusc ular suspensio n 07/03 completed Not Available Not Available Not Available Fluzone High-Dose (PF) 180 mcg/0.5 mL intramusc ular syringe 11/28 completed Not Available Not Available Not Available Flublok Quad (PF) 180 mcg (45 mcg x 4)/0.5 mL IM syringe 02/21 completed Not Available Not Available Not Available Vitals Date Recorded Body height Body mass index (BMI) Body weight Body temperature Respiratory rate Heart rate Oxygen saturation Systolic And Diastolic Provider Name and Address Organization Details Last Updated DateTime 5 167.64 cm 28.9 kg/m2 82610.7 3 g 97.1 [degF] 16 /min 64 /min 97 % 132/78 mm[Hg] Karla Forbes MA [facility] 5 14:23:40 Date Recorded Body height Respiratory rate Body mass index (BMI) Body weight Body temperature Heart rate Oxygen saturation Systolic And Diastolic Provider Name and Address Organization Details Last Updated DateTime 4 167.64 cm 16 /min 27.4 kg/m2 54859.7 g 96.6 [degF] 62 /min 97 % 122/79 mm[Hg] Karla Forbes MA [facility] 4 15:14:36 Date Recorded Body height Respiratory rate Body mass index (BMI) Body weight Body temperature Heart rate Oxygen saturation Systolic And Diastolic Provider Name and Address Organization Details Last Updated DateTime 4 167.64 cm 16 /min 27 kg/m2 79563.0 3 g 96.9 [degF] 71 /min 96 % 148/74 mm[Hg] Karla Forbes MA [facility] 4 15:08:58 Date Recorded Body height Respiratory rate Body mass index (BMI) Body weight Body temperature Heart rate Oxygen saturation Systolic And Diastolic Provider Name and Address Organization Details Last Updated DateTime 5 167.64 cm 16 /min 29.4 kg/m2 92021.5 1 g 68.9 [degF] 72 /min 96 % 127/77 mm[Hg] Karla Forbes MA [place] [facility] 5 14:27:36 Date Recorded Body height Body mass index (BMI) Body weight Oxygen saturation Heart rate Respiratory rate Body temperature Systolic And Diastolic Provider Name and Address Organization Details Last Updated DateTime 4 167.64 cm 28.8 kg/m2 69789.4 9 g 96 % 81 /min 16 /min 97 [degF] 132/75 mm[Hg] Connie Santos LPN [place] [facility] 4 15:55:33 Social History Question Answer Notes LastModified by Organizat ion Details LastModified Time Tobacco Smoking Status Never Smoker JOSH Sellers, [place] [facility] 08/28/2021 13:56:06 Do You Have An Advance Directive? No Information n ot available 10/07/2014 Are You Blind Or Do You Have Difficulty Seeing? No Information n ot available 08/28/2021 What Is Your Level Of Caffeine Consumption? Occasional Information not available 07/10/2021 How Much Tobacco Do You Chew? None Information not available 10/07/2014 In The 14 Days Before Symptom Onset, Have You Had Close Contact With A Laboratory-confirm ed COVID-19 While That Case Was Ill? No Information n ot available 07/10/2021 In The 14 Days Before Symptom Onset, Have You Had Close Contact With A Person Who Is Under Investigation For COVID-19 While That Person Was Ill? No Information not available 07/10/2021 Have You Been To An Area Known To Be High Risk For COVID-19? No Information not available 07/10/2021 Are You Deaf Or Do You Have Serious Difficulty Hearing? No Information not available 08/28/2021 What Type Of Diet Are You Following? REGULAR Information n ot available 10/07/2014 Which Illicit Or Recreational Drugs Have You Used? No Information not available 10/07/2014 Education 12 Information n ot available 10/15/2018 Are There Any Guns Present In Your Home? No Information not available 10/07/2014 Hard Of Hearing Or Deaf In One Or Both Ears? No Information not available 10/07/2014 Legally Blind In One Or Both Eyes? No Information no t available 10/07/2014 Marital Status Informati on not available 10/15/2018 What Was The Date Of Your Most Recent Tobacco Screening? 01/11/2025 Information not available 01/11/2025 Performs Monthly Self-breast Exam? No Information no t available 10/07/2014 What Is Your Relationship Status? Single Information not available 08/28/2021 Do You Use Your Seat Belt Or Car Seat Routinely? Yes Information not available 07/10/2021 Seat Belts Used Routinely Yes Information not available 10/07/2014 Smoke Alarm In Home Yes Information not available 10/07/2014 Do You Have Smoke And Carbon Monoxide Detectors In Your Home? Yes Information not available 07/10/2021 At What Age Did You Start Smoking Tobacco? 0 Information not available 10/15/2018 Are You Passively Exposed To Smoke? No Information no t available 08/28/2021 How Much Tobacco Do You Smoke? No Information not available 10/15/2018 General Stress Level Low Information not available 01/31/2020 Do You Use Sunscreen Routinely? No Information not available 10/07/2014 Has Tobacco Cessation Counseling Been Provided? No Information not available 02/26/2022 How Many Years Have You Smoked Tobacco? 0 Information not available 10/15/2018 Sex: Female Functional Status Question Answer Note LastModified by Organizat ion Details LastModified Time Do you use any illicit or recreational drugs? No Information not available 07/10/2021 Do you or have you ever used any other forms of tobacco or nicotine? No Information not available 07/10/2021 What is your level of alcohol consumption? None [email or web address] Information not available 08/25/2014 Do you or have you ever used smokeless tobacco? Never used smokeless tobacco Information not available 07/13/2020 Are you currently employed? No Information not available 07/10/2021 Are you able to care for yourself independently? Yes Information not available 08/28/2021 What is your occupation? Retired Information not available 10/15/2018 Do you or have you ever used e-cigarettes or vape? Never used electronic cigarettes Information not available 07/13/2020 What is your exercise level? Moderate [email or web address] Information not available 04/01/2019 Mental Status Question Answer Note LastModified by Organization D etails LastModified Time Do you feel stressed (tense, restless, nervous, or anxious, or unable to sleep at night)? [id number] Information not available 07/10/2021 Family History Relationship Description Onset Age of this Age Resolved Age Notes LastModified by Organization Details LastModified Time Mother History of cerebrovascu lar accident [email or web address] Not available 16:26:09 Mother Heart disease [email or web address] Not available 2015 16:26:09 Father Harmful pattern of use of alcohol [email or web address] Not available 2015 16:26:09 Father Heart disease [email or web address] Not available 2015 16:26:09 Father Hyperlipidem ia [email or web address] Not available 2015 16:26:09 Medical History Condition Response Coronary Artery Disease N Other Y High Blood Pressure Y Atrial Fibrillation N Kidney or Bladder Problems N Thyroid Problems N GI Problems Y Depression Y COPD Y Blood Clots N Skin Problems N Anemia Y Heart Attack ([place]) N Anxiety Disorder Y Diabetes N Muscle, Joint, or Bone Problems Y Seizures/Epilepsy N Acid Reflux (GERD) Y Cancer N Stroke N Asthma N Allergies N High Cholesterol Y Hepatitis N Liver Disease N Headaches N Osteoporosis N Heart Failure N Gynecological History Statement/Question Response Age at Menarche 48 Age at First Child 20 Obstetrics History GPAL:G 0 P 0 0 0 0 Immunizations Vaccine Type Date Status Note Provider Nam e and Address Organization Details Recorded Time Influenza, split virus, quadrivalent, preservative 0 completed Not Available [facility] 10/12/2023 06:42:54 Influenza, high-dose, quadrivalent, PF 2 completed Not Available [facility] 10/12/2023 06:42:54 COVID-19, mRNA, LNP-S, PF, 30 mcg/0.3 mL dose 2 completed Not Available [facility] 10/12/2023 06:42:54 Influenza, split virus, quadrivalent, preservative 6 completed Not Available [facility] 10/12/2023 06:42:54 COVID-19, mRNA, LNP-S, PF, 30 mcg/0.3 mL dose, edison-sucrose 2 completed Not Available [facility] 10/12/2023 06:42:54 Influenza, split virus, quadrivalent, preservative 6 completed Not Available [facility] 10/12/2023 06:42:54 Influenza, high-dose, trivalent, PF 9 completed Not Available [facility] 10/12/2023 06:42:54 Influenza, high-dose, quadrivalent, PF 2 completed Not Available [facility] 10/12/2023 06:42:54 Influenza, recombinant, quadrivalent, PF 0 completed Not Available [facility] 10/12/2023 06:42:54 Influenza, split virus, quadrivalent, preservative 6 completed Not Available [facility] 10/12/2023 06:42:54 Influenza, high-dose, quadrivalent, PF 1 completed Not Available [facility] 10/12/2023 06:42:54 COVID-19, mRNA, LNP-S, PF, 30 mcg/0.3 mL dose 1 completed MAGALI TAVERA NP Attn: [address] [place], [address], [place] - [facility] 09/07/2024 16:07:05 COVID-19, mRNA, LNP-S, PF, 30 mcg/0.3 mL dose 1 completed MAGALI TAVERA NP Attn: [address] [place], [address], [place] [facility] 09/07/2024 16:07:05 Pneumococcal conjugate PCV 13 8 completed Not Available [facility] 10/12/2023 06:42:54 Influenza, high-dose, trivalent, PF 4 completed MAGALI TAVERA NP Attn: Accounting,[address] [facility], [place], [address], [facility] - [facility] 09/07/2024 16:07:05 Influenza, high-dose, quadrivalent, PF 3 completed MAGALI TAVERA NP Attn: Accounting,[address] [facility], [place], [address], [facility] - [facility] 08/06/2023 15:42:35 Influenza, split virus, quadrivalent, preservative 7 completed Not Available [facility] 10/12/2023 06:42:54 Past Encounters Encounter ID Performer Location Encounter Start Date Encounter Closed Date Diagnosis/Indication Diagnosis SNOMED-CT Code Diagnosis ICD10 Code Diagnosis IMO Codes Diagnosis Note Evi Clifton [address] [address] 08/25/2014 15:41:44 08/25/2014 19:24:28 Acute sinusitis 82394933 Gastroesop hageal reflux disease 359334067 Acute exac erbation of chronic obstructive pulmonary disease 406342375 flares occasional ly; no everyday meds; Never Smoked., was around [place]. [id number] Evi Clifton [address] [address] 10/07/2014 15:40:47 10/11/2014 09:38:10 Hyperlipidemia 24900111 Hypertensive disorder 78307606 Mixed anxi ety and depressive disorder 040936733 [id number] Evi Clifton [address] [address] 02/07/2015 15:57:04 02/08/2015 15:09:43 Chest discomfort 148754706 Hyperlipidemia 73180966 Hypertensive disorder 23341200 Gastroesop hageal reflux disease 562032016 Mixed anxi ety and depressive disorder 282111187 Obesity 957540588 [id number] Chloe Machuca MD [facility] [address] [place] [address] 05/09/2015 15:30:02 05/10/2015 16:51:37 Diastolic dysfunction 9535314 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 Hyperlipidemia 12800074 Hypertensive disorder 27821646 Chronic ob structive pulmonary disease 48994100 [id number] Evi Clifton [place] [address] 5 06/06/2015 15:27:51 06/09/2015 17:17:41 Diastolic dysfunction 9179082 [facility] ed on metoprolol [id number] Evi Clifton [place] [address] 08/07/2015 11:30:22 08/10/2015 15:51:55 Bacterial conjunctivitis 580776805 H10.973 [id number] Chloe Machuca MD [place] [address] 5 07/08/2016 16:23:58 07/10/2016 13:16:54 Diastolic dysfunction 4646221 I50.30 improved on metoprolol Chronic ob structive pulmonary disease 31099544 J44.9 Eruption 339717541 R21 Gastroesop hageal reflux disease 140348574 K21.9 Allergy to bee venom 424 813358 Z91.030 Hypertensive disorder 38 492432 I10 E78.2 Screening for malignant neoplasm of breast 513706403 Z12.31 Mixed anxi ety and depressive disorder 229251350 F41.8 Hyperlipidemia 54330343 E78.5 Obesity 122675587 E66.9 [id number] Galindo Smith MD [place] [address] 5 07/10/2016 10:43:05 07/10/2016 11:02:11 Needs influenza immunization 410880005 Z23 [id number] Galindo Smith MD [address] [address] 11/19/2016 15:34:28 11/20/2016 10:29:53 Fresh blood in external ear canal 565085311 H92.21 Depression screening 171 591047 Z13.89 negative [id number] IAN COLLINS NP [place] [id number] 02/12/2017 15:29:28 02/14/2017 15:59:59 Pain in left knee 0126371533 46881 M25.651 [id number] IAN COLLINS NP [address] [address] 02/21/2017 14:35:35 02/21/2017 15:28:24 Hypertensive disorder 73990457 I10 Gastroesop hageal reflux disease 313874050 K21.9 [id number] IAN COLLINS NP [place] [address] 5 04/07/2017 10:58:24 04/08/2017 11:51:54 Bacterial conjunctivitis 870229117 H10.564 [id number] Galindo Smith MD [place] [address] 5 03/24/2018 13:57:11 03/26/2018 14:56:30 Neuropathy 076502026 G62.89 Osteoarthritis 168153769 M15.0 Adult heal th examination 047596145 Z00.00 Candidiasis of mouth 797 46471 B37.0 Administra tion of pneumococcal vaccine 88242907 Z23 [id number] Galindo Smith MD [place] [address] 5 04/02/2018 11:52:45 04/08/2018 12:01:38 Adult health examination 448780741 Z00.00 [id number] Galindo Smith MD [place] [address] 5 04/24/2018 15:00:05 04/24/2018 16:36:07 Neuropathy 250112602 G62.89 Persistent insomnia 1919 57339 G47.09 [id number] Galindo Smith MD [place] [address] 5 07/03/2018 14:04:56 07/06/2018 15:55:32 Neuropathy 962226920 G62.89 Essential hypertension 97507659 I10 Mixed anxi ety and depressive disorder 080765988 F41.8 [id number] Gallo Lopez MD [place] [address] 5 10/15/2018 13:35:01 10/19/2018 12:51:28 Mixed anxiety and depressive disorder 889913987 F41.8 controlled on venlafaxin e & seroquel for sleep Gastroesop hageal reflux disease 792707211 K21.9 cont pPI Chronic ob structive pulmonary disease 19792423 J44.9 Osteoporosis 99948806 M8 1.0 thinks she had DEXA years ago, but no repeat study. Encouraged her to start daily calcium + vit D Foot pain 04849928 M79.6 71 M79.672 dwp that it may not be all due to neuropathy , cont lyrica for now at lower dose. Treat for fungal infection Tinea pedis 0588972 B35. 3 Recommend treating for fungal infection and see podiatry for further eval of foot pains not responding to neuropathy treatments Pneumonia 718375721 J18. 9 hospitaliz ed in Jul, treated w/ abx, sxs have resolved, but no repeat CXR, recommend she get it now to make sure infection fully resolved. Hyperlipidemia 99109604 E78.2 Hypertensive disorder 38 521867 I10 not well controlled today; recommend she cont her meds, treat foot infection, check BP at home. Long-term drug therapy 216501747 Z79.136 [id number] Gallo Lopez MD [facility] [address] [place] [address] 11/26/2018 13:55:27 11/27/2018 13:22:30 Hypertensive disorder 60030414 I10 not well controlled today; recommend she cont her meds, treat foot infection, check BP at home. Diastolic dysfunction 35 99370 I50.30 may be causing her shortness of breath, no edema, but some shortness of breath w/ laying down. Cont HCTZ; make appt w/ cardiology if not improving in the next week. Gastroesop hageal reflux disease 366172878 K21.9 cont PPI Foot pain 30987817 M79.6 71 M79.672 dwp that it may not be all due to neuropathy , cont lyrica for now at lower dose. Treat for fungal infection, see podiatry Chronic ob structive pulmonary disease 76408694 J44.9 controlled , cont inhaler, trial of using Pro-Air prior to walking dog and see if shortness of breath improves. If not then make cardiology appt. Body mass index 30+ - obesity 840172212 Z68.31 reviewed previous weight, 28lb weight gain since Jun. She admits to decreased activity with leila foot pains. Advised to decrease portions, quit soda and do exercises inside home rather than walking as alternativ e until she sees podiatry [id number] Gallo Lopez MD [facility] [address] [place] [address] 01/26/2019 14:42:24 01/29/2019 12:02:33 Osteoarthritis 192691670 M19.90 limit use, no more than 3 times a day, take with food. Hypertensive disorder 38 744065 I10 Improved, cont hctz; metoprolol Pain in left knee 235005 6719 63973 M25.562 stable, tramadol helps Shoulder joint pain 2679 32733 M25.511 possible frozen shoulder. hx of rotator cuff repair by Dr. Waller over 5 years ago. [id number] Gallo Lopez MD [facility] [address] [place] [address] 04/01/2019 15:08:41 04/16/2019 13:52:55 Hypertensive disorder 64581037 I10 Improved, cont hctz; metoprolol Chronic ob structive pulmonary disease 32781905 J44.9 controlled , cont inhaler Gastroesop hageal reflux disease 998971360 K21.9 controlled , cont PPI Allergy to bee venom 424 214034 Z91.030 Mixed anxi ety and depressive disorder 931460175 F41.8 controlled on venlafaxin e & seroquel for sleep Hyperlipidemia 50248920 E78.2 Foot pain 59246645 M79.6 72 dwp that it may not be all due to neuropathy , cont lyrica for now at lower dose. Treat for fungal infection, see podiatry Persistent insomnia 1919 34672 G47.09 Long-term drug therapy 579732576 Z79.423 [id number] Ebony La MD [facility] [address] [place] [address] 08/04/2019 15:50:43 08/05/2019 10:00:51 Hypertensive disorder 59677386 I10 - b/p in office today 122/78- Doing well on current treatment. - Continue medication as prescribed and diet/exerc ise as previously discussed. - Take occasional BP s , call if consistent ly >140/90. - Discussed reasons for sooner f/u than 4 months. - Patient verbalizes understand ing. Hyperlipidemia 74508744 E78.5 - Educated on risks factors, and healthy lifestyle. - Handout provided on lifestyle modificati ons .- Continue statin as prescribed , possible side-effec ts discussed with patient.- RTC in 4 month Gastroesop hageal reflux disease 574297892 K21.9 - discussed the follow non pharmacolo gical ways the patient can help manage her reflux: -Avoid lying flat 3 to 4 hours after eating or drinking. - Avoid tight clothing around the waist. - Decrease dietary fat intake. - Avoid acidic foods (citrus and tomato-bas ed products), alcohol, caffeinate d beverages, chocolate, onions, garlic, salt, and peppermint oil. - Avoid large meals. - Avoid drinking coffee, or carbonated beverages. - Weight loss can help with symptoms, try to diet and exercise. Foot pain 46440774 M79.6 73 - patient with c/o bilateral neuralgic foot pain [id number] Ebony La MD [facility] [address] [place] [address] 11/29/2019 10:50:27 11/30/2019 09:09:40 Hypertensive disorder 86154307 I10 - b/p in office today 126/80- Doing well on current treatment. - Continue medication as prescribed and diet/exerc ise as previously discussed. - Take occasional BP s , call if consistent ly >140/90. - Discussed reasons for sooner f/u than 4 months. - Patient verbalizes understand ing. Hyperlipidemia 46827797 E78.5 - Educated on risks factors, and healthy lifestyle. - Continue statin as prescribed , possible side-effec ts discussed with patient. - RTC in 4 month Vitamin D deficiency 347 86169 E55.9 - last vitamin D in 07/2019 was 25.4- will draw f/u labs in 12 weeks Obesity 199289718 E66.9 - d/w patient importance of implementi ng some sort of exercise regimen at least 20-30 minutes activity/d ay, watching her diet and eating breakfast as this has shown to be most effective for fdc maintenanc e of weight loss. In the meantime, will check thyroid function and follow up as needed. [id number] Ebony La MD [facility] [address] [place] [address] 01/31/2020 13:49:19 02/01/2020 11:09:45 Hypertensive disorder 22381805 I10 - Continue medication as prescribed and diet/exerc ise as previously discussed. - Take occasional BP s , call if consistent ly >140/90. - Discussed reasons for sooner f/u than 2 months. - Patient verbalizes understand ing. [id number] Ebony La MD [facility] [address] [place] [address] 03/29/2020 14:00:46 03/30/2020 06:13:32 Hypertensive disorder 92683112 I10 - Continue medication as prescribed and diet/exerc ise as previously discussed. - Take occasional BP s , call if consistent ly >140/90. - Discussed reasons for sooner f/u than 4 months. - Patient verbalizes understand ing. Chronic ob structive pulmonary disease 87850659 J44.9 - rx refill [id number] Ebony La MD [facility] [address] [place] [address] 07/13/2020 10:41:25 07/14/2020 14:14:36 Chest discomfort 164042298 R07.89 - c/o chest discomfort /tightness with exertion- r/o cardiac etiology Hypertensive disorder 38 084251 I10 - Continue medication as prescribed and diet/exerc ise as previously discussed. - Take occasional BP s , call if consistent ly >140/90. - Discussed reasons for sooner f/u than 3 months. - Patient verbalizes understand ing. [id number] MAGALI TAVERA NP [facility] [address] [place] [address] 10/23/2020 08:35:48 10/24/2020 19:10:36 Diastolic dysfunction 3833927 I50.30 - Dr. Miranda following and manging patient care- [facility] next appoint[facility] t with cardiologi st 10/25/20 Hypertensive disorder 38 355551 I10 - b/p 115/57 at cardiologi office on 10/12/2020 - Continue medication as prescribed and diet/exerc ise as previously discussed. - Take occasional BP s , call if consistent ly >140/90. - Discussed reasons for sooner f/u than 3 months. - Patient verbalizes understand ing. Screening mammography 24 082739 Z12.31 - Patient educated on the importance of annual breast cancer screenings with mammograph y.- Mammogram order sent Mastodynia of right breast [id number] 2884123 N64.4 [id number] Ebony La MD [facility] [address] [place] [address] 02/21/2021 09:30:45 02/22/2021 14:02:46 Hypertensive disorder 66155074 I10 - patient stated home b/p 116/69 - Continue medication as prescribed and diet/exerc ise as previously discussed. - Take occasional BP s , call if consistent ly >140/90. - Discussed reasons for sooner f/u than 6 months. - Patient verbalizes understand ing. [id number] MD Palmer Martin [address] [place] [address] 05/01/2021 11:30:56 05/03/2021 20:36:11 Administration of SARS-CoV-2 antigen vaccine 653595165 Z23 [id number] MD Palmer Martin [address] [place] [address] 05/22/2021 13:33:06 05/23/2021 07:02:24 Administration of SARS-CoV-2 antigen vaccine 554218458 Z23 [id number] MD Palmer Vale [address] [place] [address] 07/10/2021 14:23:26 07/12/2021 13:15:01 Decreased hearing 528209634 H91.91 Administra tion of influenza vaccine 34171358 Z23 - recommende d annual influenza vaccinatio n Congestion of nasal sinus 03001616 R09.81 [id number] MD Palmer Ha [address] [place] [address] 08/28/2021 13:22:57 08/31/2021 10:35:00 Hypertensive disorder 94514649 I10 - patient stated home b/p 116/69 - Continue medication as prescribed and diet/exerc ise as previously discussed. - Take occasional BP s , call if consistent ly >140/90. - Discussed reasons for sooner f/u than 6 months. - Patient verbalizes understand ing. Persistent insomnia 1919 15522 G47.09 Chronic ob structive pulmonary disease 18519838 J44.9 [id number] Ebony La MD [facility] [address] [place] [address] 02/26/2022 13:38:16 02/27/2022 11:04:42 Chronic obstructive pulmonary disease 09153412 J44.9 - Encouraged and educated on the importance of pneumonia and influenza vaccinatio n. - Encouraged good pulmonary hygiene. Patient to notify provider if condition worsens or report immediatel y to ED with respirator y distress. - RTC in 3 months. (unstable 1 month) Hypertensive disorder 38 380018 I10 - patient stated home b/p 116/69 - Continue medication as prescribed and diet/exerc ise as previously discussed. - Take occasional BP s , call if consistent ly >140/90. - Discussed reasons for sooner f/u than 6 months. - Patient verbalizes understand ing. Body mass index 30+ - obesity [id number] Z68.32 advised low fat, low cholestero l, low carb diet, regular exercise and weight reduction. [id number] Marco Gibson MD [facility] [address] [address] 5 08/02/2022 15:31:14 08/05/2022 12:42:34 Hypertensive disorder 10189505 I10 - patient stated home b/p 98/60 - Continue medication as prescribed and diet/exerc ise as previously discussed. - Take occasional BP s , call if consistent ly >140/90. - Discussed reasons for sooner f/u than 6 months. - Patient verbalizes understand ing. [id number] Marco Gibson MD [facility] [address] [address] 5 02/04/2023 14:10:08 02/05/2023 12:54:35 Pain in finger of left hand [id number] 13579 M79.645 Hypertensive disorder 38 546151 I10 - patient stated home b/p 121/73 - Continue medication as prescribed and diet/exerc ise as previously discussed. - Take occasional BP s , call if consistent ly >140/90. - Discussed reasons for sooner f/u than 6 months. - Patient verbalizes understand ing. Screening mammography 24 872437 Z12.31 - Patient educated on the importance of annual breast cancer screenings with mammograph y.- Mammogram order sent Obesity 557209337 E66.9 advised low fat, low cholestero l, low carb diet, regular exercise and weight reduction. [id number] Marco Gibson MD [facility] [address] [id number] 04/24/2023 14:33:11 05/01/2023 13:16:44 Hypertensive disorder 51654001 I10 - patient stated home b/p 143/82 - Continue medication as prescribed and diet/exerc ise as previously discussed. - Take occasional BP s , call if consistent ly >140/90. - Discussed reasons for sooner f/u than 6 months. - Patient verbalizes understand ing. Hypokalemia 71552294 E87 .6 Candidiasis of mouth 797 81008 B37.0 [id number] Marco Gibson MD [facility] [address] [address] 5 08/06/2023 14:08:45 08/08/2023 15:15:04 Hypertensive disorder 07301938 I10 - patient stated home b/p 132/76 - Continue medication as prescribed and diet/exerc ise as previously discussed. - Take occasional BP s , call if consistent ly >140/90. - Discussed reasons for sooner f/u than 6 months. - Patient verbalizes understand ing. Administra tion of influenza vaccine 08683357 Z23 - recommende d annual influenza vaccinatio n Chronic ob structive pulmonary disease 39223332 J44.9 - Encouraged and educated on the importance of pneumonia and influenza vaccinatio n. - Encouraged good pulmonary hygiene. Patient to notify provider if condition worsens or report immediatel y to ED with respirator y distress. - RTC in 3 months. (unstable 1 month) Screening for malignant neoplasm of colon 501048349 Z12.11 Screening mammography 24 827818 Z12.31 - Patient educated on the importance of annual breast cancer screenings with mammograph y.- Mammogram order sent [id number] MAGALI TAVERA NP [facility] [address] [address] 5 02/04/2024 14:39:22 02/12/2024 15:56:29 Hearing loss 44153865 H91.93 Hypertensive disorder 38 718027 I10 - b/p in office today 122/79- Continue medication as prescribed and diet/exerc ise as previously discussed. - Take occasional BP s , call if consistent ly >140/90.- Discussed reasons for sooner f/u than 6 months.- Patient verbalizes understand ing. Vertigo 355774602 R42 - Do not lie flat on your back- Move slowly so that you do not fall- Do not drive while you are having vertigo- Take medication exactly as prescribed Overweight 528015792 E66 .3 advised low fat, low cholestero l, low carb diet, regular exercise and weight reduction. [id number] Marco Gibson MD [facility] [address] [place] [address] 03/08/2024 15:01:01 03/09/2024 13:43:49 Adult health examination 063574889 Z00.00 Health Risk Assessment collected and reviewed Screening for osteoporosis 499736733 Z13.820 Screening for malignant neoplasm of colon 952498393 Z12.11 [id number] Marco Gibson MD [facility] [address] [place] [address] 09/07/2024 15:36:36 09/23/2024 13:58:43 Gastroesophageal reflux disease 491853588 K21.9 - discussed the follow non pharmacolo gical ways the patient can help manage her reflux: -Avoid lying flat 3 to 4 hours after eating or drinking. - Avoid tight clothing around the waist. - Decrease dietary fat intake. - Avoid acidic foods (citrus and tomato-bas ed products), alcohol, caffeinate d beverages, chocolate, onions, garlic, salt, and peppermint oil. - Avoid large meals. - Avoid drinking coffee, or carbonated beverages. - Weight loss can help with symptoms, try to diet and exercise. Colonoscopy declined 837 [id number] 72020 Z53.20 Hypertensive disorder 38 389512 I10 - b/p in office today 132/75- Continue medication as prescribed and diet/exerc ise as previously discussed. - Take occasional BP s , call if consistent ly >140/90.- Discussed reasons for sooner f/u than 6 months.- Patient verbalizes understand ing. [id number] Marco Gibson MD [facility] [address] [place] [address] 01/11/2025 14:10:42 01/14/2025 13:25:03 Hypertensive disorder 77350430 I10 - b/p in office today 132/78- Continue medication as prescribed and diet/exerc ise as previously discussed. - Take occasional BP s , call if consistent ly >140/90.- Discussed reasons for sooner f/u than 6 months.- Patient verbalizes understand ing. Overweight 073267886 E66 .3 advised low fat, low cholestero l, low carb diet, regular exercise and weight reduction. Allergy to bee venom 424 979375 Z91.030 Acute constipation 47655 9006 K59.00 206271 Recommend to increase fiber content in diet with more fruits and vegetable. Drink plenty of water.Take otc medication if getting worse go to ER.If no improvemen t in 1-2 weeks, return to clinic for further assessment or follow up with Gastromary ann klein [id number] Marco Gibson MD [facility] [address] [place] [address] 03/15/2025 14:05:34 03/28/2025 14:56:59 Hypertensive disorder 80348360 I10 - b/p in office today 127/77- Continue medication as prescribed and diet/exerc ise as previously discussed. - Take occasional BP s , call if consistent ly >140/90.- Discussed reasons for sooner f/u than 6 months.- Patient verbalizes understand ing. Adult heal th examination 613751323 Z00.00 Health Risk Assessment collected and reviewed Colonoscopy declined 536 [id number] 61851 Z53.20 Patient declined Health Concerns Section Related Observation LastModified by Organization Detai ls LastModified Time None Recorded Concern Status LastModified by Organization Details LastModified Time None Recorded Advance Directives Directive N: Payers Insurance Date Sequence Insurance Name Policy Number Policy Abdi Covered Member ID Abdi Member ID Guarantor Name 03/28/2025 1 [facility] (MEDICARE REPLACEMENT/A DVANTAGE - HMO) [id number] Amirah Swift [id number] Amirah Swift 01/11/2025 1 [facility] [id number] Amirah Swift [id number] Amirah Swift 01/11/2025 MEDIC[place]: [facility] [id number] Amirah Swift 08/27/2021 SLIDING FEE SCHEDULE - DISCOUNT Amirah Swift 01/11/2025 2 [place]ICARE [place]: [facility] Amirah Swift [id number] Amirah Swift 09/18/2017 SLIDING FEE SCHEDULE - DISCOUNT Amirah Swift 02/19/2017 1 *SELF PAY* Giselle Swift 01/11/2025 1 [employer] (MEDICARE REPLACEMENT/A DVANTAGE - HMO) Amirah Swift [id number] Amirah Swift 09/18/2017 1 *SELF PAY* Giselle Swift 03/24/2018 1 *SELF PAY* Giselle Swift 03/24/2018 SLIDING FEE SCHEDULE - DISCOUNT Amirah Swift Notes Date Note Type Note Provider Name and Address Organization Details Recorded Time 02/04/20 24 text/htm l Hypertension F/UReported by PatientHPIFor associated symptoms, patient reportslightheadednessbut reportsno dizziness,no chest pain,no shortness of breath,no palpitations, andno edema. For medications, patient reportstaking medications as directedandno side effects from medication.ROS as noted in the HPI Ms. Swift presented in office today for follow up appointment. Patient reports episodes of feeling off balance. Patient also reports bilateral decreased hearing MAGALI TAVERA NP Attn: Accounting,[address] [facility], [place], [address], [facility] 02/12/2024 08:57:36 03/08/20 24 text/htm l MAW 2Reported by PatientSocial/Behavioral HistoryFor diet and nutrition, patient reportshealthy diet. For fracture risk, patient reportsno history of fracturesandno sudden unexplained fractures.Mental Status:For concentration and memory, patient reportsmemory lapses or lossandforgetting words. For speech/motor difficulties, patient reportsno speech difficulties,no difficulty expressing formulated concepts,no difficulty with fine manipulative tasks,no difficulty writing/copying,no slowed reaction time, anddoes not knock things over when trying to pick them up.Functional AbilityFor hearing, patient reportsno loss of hearing. For vision, patient reportsno vision problems. For activities of daily living, patient reportsable to bathe with limited or no assistance,able to contol urination and bowels,able to dress with limited or no assistance,able to feed self with limited or no assistance,able to get out of chair or bed with limited or no assistance,able to groom with limited or no assistance, andable to toilet with limited or no assistance. For instrumental activities of daily living, patient reportsable to do house work with limited or no assistance,able to grocery shop with limited or no assistance,able to manage medications with limited or no assistance,able to manage money with limited or no assistance,able to prepare meals with limited or no assistance, andable to use the phone with limited or no assistance. For falls risk assessment, patient reportsno frequent falls while walking,no dizziness/vertigo, andfall(s) since last visit1. For home safety, patient reportsno unsafe sammie hazzards,no unsafe stairs,working smoke/co detectors,no fire arms,has hand bars in the bathroom/shower, andgood lighting in the home.ROS as noted in the [facility] Ms. Swift presented in office today for follow up appointment and medicare wellness exam. MAGALI TAVERA NP Attn: Accounting,[address] [place], [address], [facility] 03/08/2024 16:30:37 09/07/20 24 text/htm l Hypertension F/UReported by PatientHPIFor associated symptoms, patient reportsno dizziness,no lightheadedness,no chest pain,no shortness of breath,no palpitations, andno edema. For medications, patient reportstaking medications as directedandno side effects from medication.ROS as noted in the [facility] Ms. Swift is here for a follow-up, reporting no new symptoms or concerns. No changes in health since the last visit. MAGALI TAVERA NP Attn: Accounting,[address] [facility], [place], [address], [facility] 09/23/2024 00:23:15 01/12/20 25 text/htm l Hypertension F/UReported by PatientHPIFor associated symptoms, patient reportsno dizziness,no lightheadedness,no chest pain,no shortness of breath,no palpitations, andno edema. For medications, patient reportstaking medications as directedandno side effects from medication. ConstipationReported by PatientHPIFor quality, patient reportsstraining. For context, patient reportsrecent surgery. For severity, patient reportsmoderate. For duration, patient reportspresent <1 month.ROS as noted in the HPI Ms. Swift is here for a follow-up, reporting constipation x 2 weeks. Patient also requesting refill on Epi pen. MAGALI TAVERA NP Attn: Accounting,[address] , [place], [address], [place] [facility] 01/14/2025 10:00:43 03/15/20 25 text/htm l Hypertension F/UReported by PatientHPIFor associated symptoms, patient reportsno dizziness,no lightheadedness,no chest pain,no shortness of breath,no palpitations, andno edema. For medications, patient reportstaking medications as directed. MAW 2Reported by PatientSocial/Behavioral HistoryFor diet and nutrition, patient reportshealthy dietanddiscussed vitamin and supplement use. For fracture risk, patient reportsno history of fracturesandno sudden unexplained fractures.Mental Status:For concentration and memory, patient reportsforgetting wordsbut reportsno decreased concentrating abilityandno memory lapses or loss. For speech/motor difficulties, patient reportsno speech difficulties.Functional AbilityFor hearing, patient reportsno loss of hearing. For vision, patient reportsno vision problems. For activities of daily living, patient reportsable to bathe with limited or no assistance,able to contol urination and bowels,able to dress with limited or no assistance,able to feed self with limited or no assistance,able to get out of chair or bed with limited or no assistance,able to groom with limited or no assistance, andable to toilet with limited or no assistance. For instrumental activities of daily living, patient reportsable to do house work with limited or no assistance,able to grocery shop with limited or no assistance,able to manage medications with limited or no assistance,able to manage money with limited or no assistance,able to prepare meals with limited or no assistance, andable to use the phone with limited or no assistance. For falls risk assessment, patient reportsno frequent falls while walking,no fall since last visit,no dizziness/vertigo, andfall(s) in the past year 1. For home safety, patient reportsno unsafe sammie hazzards,no unsafe stairs,working smoke/co detectors,no fire arms,has hand bars in the bathroom/shower, andgood lighting in the home.ROS as noted in the HPI Ms. Swift present for follow up appointment and Medicare wellness exam. MAGALI TAVERA NP Attn: Accounting,[address] [facility], [place], [address], [place] [facility] 03/28/2025 09:09:30 OBGyn Episode No OBEpisode recorded.
--- OUTSIDE RECORDS SUMMARY | 2025-09-10 09:44 | XMS_ITS | Clinical Summary ---
Author Organization [facility] [address] Address [address] [place] [address] Phone Care Team Providers Care Microsoft Application Developer Name Role Phone Magali Benavidez NP Primary Care Provider Allergies Active Allergy Reactions Criticality Noted Date Comments Azithromycin Penicillins Medications venlafaxine XR (EFFEXOR-XR) 150 mg 24 hr capsule venlafaxine ER 150 mg capsule,extended release 24 hr Take 1 capsule by mouth once daily in the morning Active omeprazole (PriLOSEC) 20 mg capsule omeprazole 20 mg capsule,delayed release Take 1 capsule by mouth twice daily Active metoprolol tartrate (LOPRESSOR) 25 mg immediate release tablet Take 25 mg by mouth 2 (two) times a day 0 Active hydroCHLOROthia zide (HYDRODIURIL) 25 mg tablet Take 25 mg by mouth daily 0 Active QUEtiapine (SEROquel) 100 mg tablet Take 100 mg by mouth nightly 0 Active aspirin 81 mg enteric coated tablet Take 81 mg by mouth daily Active atorvastatin (LIPITOR) 80 mg tablet Take 80 mg by mouth nightly 0 Active albuterol HFA (PROVENTIL HFA,VENTOLIN HFA,PROAIR HFA) 90 mcg/actuation inhaler albuterol sulfate HFA 90 mcg/actuation aerosol inhaler Active Active Problems Problem Noted Date Diagnosed Date Encounter for screening colonoscopy 05/19/2025 Gastroesophageal reflux disease 02/05/2014 Overview (12/26/2016): ESOPHAGEAL REFLUX Family History Medical History Relation Name Comments Coronary artery disease Brother Brenda nary artery disease; Diabetes Brother Diabetes mellit us; Coronary artery disease Father Brenda nary artery disease; Diabetes Father Diabetes mellit us; Hypertension Father Hypertension; Coronary artery disease Mother Brenda nary artery disease; Stroke Mother Stroke; Relation Name Status Comments Brother Father Mother Social History Tobacco Use Types Packs/Day Years Used Date Smoking Tobacco: Never Smokeless Tobacco: Never Alcohol Use Standard Drinks/Week Comments No 0 (1 standard drink = 0.6 oz pur e alcohol) Comments Unknown Sex and Gender Information Value Date Recorded Sex Assigned at Not on file Legal Sex 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 Gender Identity Not on file Sexual Orientation Not on file Last Filed Vital Signs Vital Sign Reading Time Taken Comments Blood Pressure 115/57 10/12/2020 10:04 AM 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 Pulse 66 10/12/2020 10:04 AM 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 Temperature 36.2 C (97.1 F) 10/12/2020 10:04 AM 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 Respiratory Rate 16 10/12/2020 10:04 AM 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 Oxygen Saturation - - Inhaled Oxygen Concentration - - Weight 93 kg (205 lb) 10/12/2020 10:04 AM 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 Height 167.6 cm (5' 6) 10/12/2020 10:04 AM 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 Body Mass Index 33.09 10/12/2020 10:04 AM 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 Plan of Treatment Upcoming Encounters Date Type Department Care Team (Late st Contact Info) Description 01/10/2026 10:30 AM CDT Hospital Encounter [address] [address] Dc Navarro MD [address] [place] [address] DR NÚÑEZ [address] [place] [id number] 01/10/2026 10:30 AM CDT - 01/10/2026 11:00 AM CDT Surgery [address] [address] Dc Navarro MD [address] [place] [address] [place] [address] COLONOSCOPY Scheduled Procedures Name Priority Associated Diagnoses Date/Ti me COLONOSCOPY Encounter for screening colonoscopy 01/10/2026 10:30 AM CDT Insurance [facility] MEDIC[employer] ADVANTAGE Care Teams Microsoft Application Developer Relationship Specialty Start Date End Date Magali Benavidez NP [address] [address] PCP - General Family Medicine 07/28/20
--- OUTSIDE RECORDS SUMMARY | 2025-09-10 09:44 | XMS_ITS | Continuity of Care Document ---
Author Organization [facility] Eunice Address [address] [place] [address] Care Team Providers Care Objective C Developer Name Role Phone AYSE, STEPHENIE Primary Care Provider [phone] Assessment No assessment recorded. Plan of Treatment Reminders Order Date Submit Date Provider Last Modified By Organization Details Last Modified Time Details Appointments None recorded. Lab surgical pathology study - Vulvar bx 2024 [facility] ([facility]), [address], [place], [address], 16:15:32 Referral None recorded. Procedures None recorded. Surgeries None recorded. Imaging None recorded. Medication Orders clobetasol 0.05 % topical ointment 2024 [facility] [address] [place], [address], 11:56:15 estradiol 0.01% (0.1 mg/gram) vaginal cream 2024 [facility] [address] [place], [address], 11:56:13 Patient TargetsNo targets recorded. Patient InstructionsNo instructions recorded. Reason for Referral None Reported. Results Created Date Observation Date Name Description Value Unit Range Abnormal Flag Note LastModifiedBy Organization Detail LastModifiedTime 06/29/2006/29/2025 [facility] surgical pathology SEE RESULT S BELOW CASE REPOR T: Surgi gautam Patho logy Repor t Case: [id number] Autho lucinda deleon Provi aji: Lyn Sebastian, SONU Geiger cted: 06/29 1434 Order ing Locat ion: [place] [facility] logdavid Recei jennifer: 06/30 0339 Patho logis t: Wayne Machado MD Speci men: Vulva , Vulva r bx ----- ----- ----- ----- ----- ----- ----- ----- ----- ----- ----- ----- ----- ----- ----- ----- ----- ---- FINAL DIAGN OSIS: Vulva , biops y: - 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 - No dyspl joshua ident ified . - See comme nt. Alverto hester by Wayne Machado MD on 07/01 at 1511 CDT ----- ----- ----- ----- ----- ----- ----- ----- ----- ----- ----- ----- ----- ----- ----- ----- ----- ---- COMME NT: Deepe r level s are exami dexter. A PAS stain is negat calos for funga l organ isms. The findi ngs are not entir darryl speci fic but the diffe renti al diagn osis inclu kayla liche n scler osus and erosi ve liche n planu s. Clini gautam corre latio n is neede d. CLINI GAUTAM INFOR MATIO N: suspe cted liche n scler osis MICRO SCOPI C DESCR IPTIO N: A micro scopi c exami natio n was perfo rmed. A porti on of the testi ng proce ss was perfo rmed at [facility] site, NMDP1 22. Digit al imagi ng may have been used in the diagn ostic asses sment of this case. GROSS DESCR IPTIO N: A. Vulva . The speci men is label ed with the patie nt's name, prachi dailey cs and vulva r BX. Recei jennifer in forma lindsey is a 0.3 cm fragm ent of white skin. It is submi tted all in casse tte A1. Gross ed by Britt Madrigal on Not Available [facility] (Lab) [address], [place], [address], 07/01/2025 16:15:32 Result Notes None recorded. Procedures Surgical History Date Name Laterality Status Provider Name and Address Organization Details Recorded Time 025 Vulvar Biopsy completed SHREYA Ventura [address], [place], [address], [facility] 06/29/2025 14:58:27 021 operative procedure on knee completed [facility] 05/18/2025 12:33:20 020 repair of musculotendinous cuff of shoulder completed [facility] 05/18/2025 12:32:37 985 surgical procedure on lumbar spine completed [facility] 05/18/2025 12:33:54 Imaging Results None recorded. Procedure Notes None recorded. Medical Equipment None Reported. Allergies Allergen ID Allergen Name Allergen Category Reaction Reaction Severity Criticality Documentation Date Start Date Code Code System Note Provider Name and Address Organization Details Recorded Time 37523 Product containin g penicilli n (product) medicatio n Not available Not available Not available 05/18/2025 05737 8001 SNOMED [facility] 12:27:41 16699 Pneumococ gautam vaccine Not available Not available Not available Not available 05/18/2025 39765 7 RxNorm [facility] 5 12:27:48 41541 azithromy sammie medicatio n Not available Not available Not available 05/18/2025 41158 [facility]Norm [facility] 12:27:55 22088 honey bee venom environme nt Not available Not available Not available 05/18/2025 75981 7 RxNorm [facility] 12:28:12 Medications Name Sig Start Date Stop Date Status Note LastModified by Organization Details LastModified Time atorvastati n 80 mg tablet TAKE 1 TABLET BY MOUTH ONCE DAILY IN THE EVENING active Not Available Not Available No t Available hydrocodone 5 mg-acetamin ophen 325 mg tablet TAKE 1 TABLET BY MOUTH EVERY 6 HOURS 05/18 completed Not Available Not Available Not Available venlafaxine ER 150 mg capsule,ext ended release 24 hr TAKE 1 CAPSULE BY MOUTH ONCE DAILY IN THE MORNING active Not Available Not Available No t Available quetiapine 100 mg tablet TAKE 1 TABLET BY MOUTH ONCE DAILY AT BEDTIME active Not Available Not Available No t Available gabapentin 300 mg capsule TAKE 1 CAPSULE BY MOUTH THREE TIMES DAILY active Not Available Not Available No t Available omeprazole 20 mg capsule,del ayed release TAKE 1 CAPSULE BY MOUTH TWICE DAILY active Not Available Not Available No t Available hydrochloro thiazide 25 mg tablet TAKE 1 TABLET BY MOUTH ONCE DAILY active Not Available Not Available No t Available clobetasol 0.05 % topical ointment APPLY A THIN LAYER TO THE AFFECTED AREA(S) ONCE DAILY active Not Available Not Available No t Available epinephrine 0.3 mg/0.3 mL injection, auto-inject or INJECT CONTENTS OF 1 PEN NEEDED FOR ALLERGIC REACTION FOR BEE STINGS AND GO TO ER active Not Available Not Available No t Available estradiol 0.01% (0.1 mg/gram) vaginal cream INSERT 1 GM VAGINALLY AT BEDTIME 2-3 TIMES PER WEEK MAINTENAN CE DOSE. active Not Available Not Available No t Available metoprolol tartrate 25 mg tablet TAKE 1 TABLET BY MOUTH TWICE DAILY active Not Available Not Available No t Available Vitals Date Recorded Body height Body mass index (BMI) Body weight Systolic And Diastolic Provider Name and Address Organization Details Last Updated DateTime 06/29/2025 167.64 cm 30.5 kg/m2 02479.96 g 121/74 mm[Hg] Nila Burr [facility] 06/29/2025 11:27:12 Social History Question Answer Notes LastModified by Organizat ion Details LastModified Time Tobacco Smoking Status Never Smoker Nila Burr harvey [facility] 05/18/2025 12:31:59 In The 14 Days Before Symptom Onset, Have You Had Close Contact With A Laboratory-confirm ed COVID-19 While That Case Was Ill? No [email or web address] Information n ot available 05/18/2025 In The 14 Days Before Symptom Onset, Have You Had Close Contact With A Person Who Is Under Investigation For COVID-19 While That Person Was Ill? No [email or web address] Information not available 05/18/2025 Have You Been To An Area Known To Be High Risk For COVID-19? No [email or web address] Information not available 05/18/2025 Sex: Unknown Functional Status None recorded. Mental Status None recorded. Family History Relationship Description Onset Age of this Age Resolved Age Notes LastModified by Organization Details LastModified Time Mother Heart disease [email or web address] Not available 2024 12:31:40 Mother Hypertensive disorder [email or web address] Not available 2024 12:31:51 Father Heart disease [email or web address] Not available 2024 12:31:40 Medical History Condition Response Allergies (Food, seasonal, environmental ) N Other N Drug/Latex Allergies/Reactions N Blood Transfusion N Breast Cancer N Dermatologic Disorders N Lung Disease N Defects or Inherited Disease N Breast Problem N Gestational Diabetes N Hematologic disorders N Anesthesia Complications N History of STI Y Deep Vein Thrombosis N Polycystic ovary syndrome N Anxiety Disorder N Autoimmune disease N Arthritis N Polyps N Infertility N Acid Reflux (GERD) N History of abnormal pap N Cancer N Varicosities N Stroke N Neurologic/Epilepsy N Endometriosis N High Cholesterol Y Fibromyalgia N Headaches N Kidney Disease N Heart Problems N Thyroid Problems N Kidney or Bladder Problems N GI Problems N Eating Disorder N Anemia Y Art (IVF or FET) N Psychiatric Illness N Ovarian Cancer N Diabetes N Pulmonary (TB, Asthma) N Hepatitis/Liver Disease N No Past Medical History N Eczema N Urinary Tract Infection N Abuse/Domestic Violence N Asthma N Trauma/Violence N Depression/ depression N Heart Disease N Pre-Eclampsia N Hypertension Y Osteoporosis N Thrombophilias N Gynecological History Statement/Question Response Abnormal Pap N Date of Last Mammogram STIs/STDs Y HPV Vaccine N Current Control Method Menopause Date of Last Colonoscopy Sexually Active? N Menses Monthly N Date of DEXA bone scan Date of Last Pap Smear Sexual Problems? N Obstetrics History GPAL:G 2 P 2 0 0 2 Type Value Full Term 2 Living 2 Total 2 Past Encounters Encounter ID Performer Location Encounter Start Date Encounter Closed Date Diagnosis/Indication Diagnosis SNOMED-CT Code Diagnosis ICD10 Code Diagnosis IMO Codes Diagnosis Note [id number] SHREYA Ventura [place] [address] [address] 06/29/2025 11:05:56 06/29/2025 15:24:56 Vaginal dryness 40075193 N89.8 939050 symptoms have improvedwe discussed option of vulvar biopsy and she would like to proceedr/b reviewed, vulvar biopsy performed (see procedure note)shaan nue with clobetasol and estradiol creamwill update pt with pathology results when available Time spent in visit is a total of 20 mins with at least 50% of visit consisting of counseling and review of plan of care. Pruritus of vulva 499334 00 L29.2 087166 Health Concerns Section Related Observation LastModified by Organization Detai ls LastModified Time None Recorded Concern Status LastModified by Organization Details LastModified Time None Recorded Payers Encounter Date Sequence Insurance Name Policy Number Policy Abdi Covered Member ID Abdi Member ID Guarantor Name 06/29/2025 1 [facility] (MEDICARE REPLACEMENT/A DVANTAGE - PPO) [id number] Amirah Swift [id number] Amirah Swift Notes Date Note Type Note Provider Name and Address Organization Details Recorded Time 06/29/2025 text/html 74yoHere today for f/uhas been using estradiol vaginal cream and clobetasol which has significantly helped her symptoms SHREYA Ventura [address], [place], [address], [facility] 06/29/2025 14:59:42 OBGyn Episode No OBEpisode recorded.
[2025-09-10 09:52] VITALS: BP 139/59; PULSE 76; RESP 16; TEMP 36.3; O2SAT 100
--- NOTE | 2025-09-10 09:52 | ED_ITS ---
HPI - Eye Problem General Chief complaint: Eye Problems Stated complaint: Right Eye Problem Time Seen by Provider: 09/10/25 10:02 Source: patient, RN notes reviewed and old records reviewed Mode of arrival: ambulatory Limitations: no limitations History of Present Illness HPI Narrative: 75 year old female who presents to [facility] care with complaints of her right eye being scratchy and red for the past 4 days with increased tearing from her right eye. Patient reports that she has not had any mucous drainage from her right eye.Patient denies any trauma to her right eye or any known foreign body feeling. Patient has been using some OTC eye drop to get red out. Patient does wear glasses with visual acuity right 20/40,Left 20/40 with corrective lens MD chief complaint: eye redness Onset (ago): day(s) (day 4) Severity scale (1-10): 4 Treatments Prior to Arrival: OTC eye drops Related Data Home Medications ?Medication ?Instructions ?Recorded ?Confirmed ?Last Taken ?Type albuterol sulfate 90 mcg/actuation 2 inh inhalation QI D PRN shortness 09/10/25 Unknown History aerosol inhaler (Ventolin HFA) of breath or wheezing aspirin 81 mg capsule 81 mg PO DAILY 09/10/25 Unk nown History atorvastatin 80 mg tablet mg 09/10/25 Unknown History estradiol 0.01% (0.1 mg/gram) vaginal 09/10/25 Unknow n History vaginal cream gabapentin 300 mg capsule mg 09/10/25 Unknown History hydrochlorothiazide 25 mg tablet mg 09/10/25 Unknown History metoprolol tartrate 25 mg tablet mg 09/10/25 Unknown History omeprazole 20 mg capsule,delayed mg 09/10/25 Unknown History release quetiapine 100 mg tablet mg 09/10/25 Unknown History venlafaxine 150 mg mg PO 09/10/25 Unknown Hist ory capsule,extended release 24 hr Allergies Allergy/AdvReac Type Severity Reaction Status Date / Time azithromycin Allergy Severe RASH Verified 09/10/25 09:59 Penicillins Allergy Intermediate Rash Verified 09/10/25 09:59 Review of Systems Review of Systems: CONSTITUTIONAL: Denies fever, chills, or sweats. EYES: Denies visual changes. Reports redness,, irritation, tearing from right eye . ENT: Denies rhinorrhea, congestion, sore throat, or otalgia. CARDIOVASCULAR: Denies chest pain, palpitations, or edema. RESPIRATORY: Denies cough or dyspnea. SKIN: Denies rash or itching. NEUROLOGIC: Denies headache All systems reviewed & are unremarkable except as noted in HPI and below PMFSH Past Medical History Medical History (Updated 09/12/25 @ 08:16 by Valentina Arango APRN) Arthritis Anxiety and depression Chronic back pain COPD (chronic obstructive pulmonary disease) High blood cholesterol Hypertension GERD (gastroesophageal reflux disease) Surgical History Surgical History (Updated 09/12/25 @ 08:10 by Valentina Arango APRN) History of tonsillectomy History of spinal surgery S/P trigger finger release History of arthroscopy of left knee H/O repair of right rotator cuff Social History Social History (Updated 09/12/25 @ 08:11 by Valentina Arango APRN) Smoking status: Never smoker Alcohol intake: current Alcohol use details: rare social Substance use type: does not use Living arrangements: with family Gender identity (if verbalized by the patient): Female Comments At time of signature, agree with nursing past medical, surgical, social and family history. There is no relevant family history pertinent to the presenting complaint Exam Narrative: GENERAL: Well-appearing, well-nourished, and in no acute distress. HEAD: Normocephalic, atraumatic. EYES: PERRLA and EOMI. Upper and lower eyelids unremarkable. No periorbital cellulitis noted. Sclera and conjunctivae injected with irritation voiced to right eye with increased tearing, denies any sharp pain to eye ENT: Nares clear, no rhinorrhea or epistaxis. Mucous membranes moist. NECK: Supple.no lymphadenopathy CHEST: Clear to auscultation. No respiratory distress.SAO2 100% on room air HEART: Regular rate and rhythm. No murmur heard. Normal peripheral pulses. SKIN: Warm, dry, no rash. NEURO: No focal deficits. Alert and oriented x3. Course Course Level of Care: Express Care Visit Vital Signs Vital signs: Vital Signs Temperature 36.3 C L 09/10/25 09:52 Pulse Rate 76 09/10/25 09:52 Respiratory Rate 16 09/10/25 09:52 Blood Pressure 139/59 L 09/10/25 09:52 Pulse Oximetry 100 09/10/25 09:52 Oxygen Delivery Room Air 09/10/25 09:52 Temperature 36.3 C L 09/10/25 09:52 Pulse Rate 76 09/10/25 09:52 Respiratory Rate 16 09/10/25 09:52 Blood Pressure 139/59 L 09/10/25 09:52 Pulse Oximetry 100 09/10/25 09:52 Oxygen Delivery Room Air 09/10/25 09:52 reviewed MDM MDM Narrative Medical decision making narrative: Patient with 4 days of redness irritation and increased tearing from right eye patient is appropriate for outpatient care and follow up. Anticipatory guidance and reasons to seek care in ED reviewed with patient voicing understanding Differential Diagnosis Differential Diagnosis: Differential diagnostic considerations for eye problems include corneal abrasion, conjunctivitis, acute iritis, hyphemia, periorbital cellulitis, subconjunctival hemorrhage, glaucoma, corneal ulcer, ruptured globe, foreign body in eye.? Critical Care Time Critical Care Time Critical Care Time: No Discharge Plan Discharge Clinical Impression: Conjunctivitis of right eye Qualifiers: Conjunctivitis type: acute Acute conjunctivitis type: unspecified Qualified Code(s): H10.31 - Unspecified acute conjunctivitis, right eye Patient Disposition: Home Condition: Stable Instructions: Antibiotic Form, Conjunctivitis (ED) Additional Instructions: Cold compresses to the eyes for comfort May need warm compresses to remove debris in the morning When cleaning the eyes used a washcloth in one direction then change washcloths or use a cotton ball in one direction and then his cotton balls Eyedrops as directed--may be more soothing if left in the refrigerator Do not share medicine--do not touch the eye with the medicine Tylenol or ibuprofen for pain Avoid screen time--television, computer, tablet or phone. Also no reading or driving Follow-up with PCP or regulatory compliance coordinator as directed If your symptoms persist, change or worsen significantly before you can contact your personal physician then please, without delay, go to the emergency department for further evaluation. Follow-up with PCP in 7-10 days or sooner if needed Follow up with PCP soon in regards to your blood pressure which is elevated abov e threshold for referral. Blood pressure above 120/80 may indicate pre- hypertension. 139/59 Patient Language: Bahraini Prescriptions: New ofloxacin 0.3 % drops See Rx Instructions .ROUTE .COMPLEX Qty: 10 0RF Rx Instructions: put 1-2 drps into affected eye(s) every 2-4 h x 2 days, then 1-2 drps 4 elba es/day days 3-7 No Action atorvastatin 80 mg tablet venlafaxine 150 mg capsule,extended release 24hr PO quetiapine 100 mg tablet gabapentin 300 mg capsule omeprazole 20 mg capsule,delayed release(DR/EC) hydrochlorothiazide 25 mg tablet estradiol 0.01 % (0.1 mg/gram) cream VAGINAL metoprolol tartrate 25 mg tablet aspirin 81 mg capsule 81 mg PO DAILY albuterol sulfate [Ventolin HFA] 90 mcg/actuation HFA aerosol inhaler 2 inh inhalation QID PRN (Reason: shortness of breath or wheezing) Follow-up/Referrals: Reema,DONAVAN De Los Santos [Primary Care Provider, Unknown] Time of Disposition: 10:14 Quality Dominic Coma Scale Eyes: Open Verbal: Oriented and Alert Motor: Follows Commands Dominic Coma Total Score: 15
== END 2025-09-10 10:15 | disposition home or self-care (01) ==
PROVIDERS: Emergency Provider Registered Nurse; PCP Nurse Practitioner Family
DX: H10.31 Unspecified acute conjunctivitis, right eye (principal); I10 Essential (primary) hypertension; E78.00 Pure hypercholesterolemia, unspecified; J44.9 Chronic obstructive pulmonary disease, unspecified; K21.9 Gastro-esophageal reflux disease without esophagitis; M19.90 Unspecified osteoarthritis, unspecified site; F41.9 Anxiety disorder, unspecified; F32.A Depression, unspecified
CPT/HCPCS: 99213; G0463